=== PATIENT | female | born 1970 ===

== ENCOUNTER 2019-12-18 06:00 | Day surgery (SDC) | payer OTHER ==
[2019-12-18] MEDS ORDERED: DOXYCYCLINE HY100 MG PO (08:20)
[2019-12-18] MEDS ORDERED: NAPR500T14 PO (08:21)
== END 2019-12-18 13:50 | disposition home or self-care (01) ==
LOC: CIR.AMB 06:00
PROVIDERS: ATTEND Obstetrics & Gynecology
DX: D25.0 Submucous leiomyoma of uterus (principal); N84.0 Polyp of corpus uteri; Z20.828 Contact with and (suspected) exposure to other viral communicable diseases